=== PATIENT | male | born 1970 | race American Indian/Alaskan Native ===

== ENCOUNTER 2021-04-22 12:20 | Inpatient (IN) | payer MEDICAID ==
[2021-04-22] MEDS ORDERED: ZIPRASIDONE MESYLATE 20 MG VIAL IM ONE (20:00)
[2021-04-22 20:33] LABS: Basophils % (Auto) 0.5 % (0.0-1.8); Eosinophils # (Auto) 0.1 K/mm3 (0.0-0.4); Eosinophils % (Auto) 1.6 % (0.0-4.3); Hematocrit 38.3 % (35.5-45.6); Lymphocytes # (Auto) 1.8 K/mm3 (1.2-5.4); Lymphocytes % (Auto) 33.3 % (13.4-35.0); Mean Corpuscular HGB Conc 34 % (32-34); Mean Corpuscular Volume 91 fl (84-94); Monocytes # (Auto) 0.5 K/mm3 (0.0-0.8); Monocytes % (Auto) 9.8 % (0.0-7.3); Platelet Count 209 K/mm3 (140-440); Red Blood Count 4.19 M/mm3 (3.65-5.03); Red Cell Distribution Width 14.6 % (13.2-15.2)
[2021-04-22] MEDS ORDERED: WATER FOR INJ Sterile (PF) 10 ML ONE (20:38)
[2021-04-22 20:51] LABS: Alanine Aminotransferase 12 units/L (7-56); Albumin 4.3 g/dL (3.9-5); BUN/Creatinine Ratio 8; Blood Urea Nitrogen 7 mg/dL (9-20); Calcium 9.2 mg/dL (8.4-10.2); Chol/HDL Ratio 3.39 %; HDL Cholesterol 43 mg/dL (40-59); Hemolysis Index 6; LDL Cholesterol,Direct 92 mg/dL (50-130)
--- NOTE | 2021-04-23 09:23 | Progress Note ---
Subjective Date of service: 04/23/21 Principal diagnosis: Schizophrenia Subjective Comment: Per admission note: Patient became aggressive toward his sister. He is unstable on meds for schizophrenia and has been in and out of hospital up to 4 xs a week. The patient was seen today. He is walking down the maza. He is suspicious and paranoid. He is staring at me. He also appears to be responding to internal stimuli. His speech is garbled and he is difficult to understand and follow. 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 I informed the patient that this is a smoke free facility. He just stares at me then refuses to speak any more. PAST PSYCHIATRIC HISTORY Could not assess PAST MEDICAL HISTORY: None Family Psychiatric History: None reported or documented SOCIAL HISTORY Could not assess REVIEW OF SYSTEMS Could not assess MENTAL STATUS EXAMINATION General Appearance and Behavior: Age appropriate, fair hygiene, wearing ap propriate clothes, staring at times, uncooperative, suspicious Cooperation: Participating/engaged, guarded Psychomotor Behavior: Mood: Affect and affective range: congruent with mood Thought Process: disorganized Thought Content: hallucinations Speech: garbled Suicidal Ideation: Homicidal Ideation: Hallucinations: Auditory Delusions: paranoid, suspicious Impulse Control: impaired Insight and Judgment: Poor Memory: Poor Attention: Distracted Orientation: Alert, oriented Assessment (1) Schizophrenia Current Visit: Yes Status: Acute Treatment Plan Patient admitted for inpatient psychiatric evaluation, medication adjustment and close monitoring The patient's behavior, mood, sleep and appetite will be closely monitored. Patient enrolled in individual and group therapeutic sessions and encouraged to attend. Patient provided with a safe and structured environment. Patient's physical health needs will be addressed by the Hospitalist. Hospitalist Consulted Labs including CBC, CMP, Lipid profile and Hemoglobin A1C levels ordered for baseline reference Social Assessment will be completed and the Rug Measurer will work with patient and family to ensure a suitable and safe disposition Medication adjustment will be made as clinically indicated Risperidone 0.5mg po BID Trazodone 50mg po qhs Nicotine patch 21mg daiy Usual Wellness [facility]/Pres[facility]: - Start Trazodone 50 mg po QHS & 50 mg po QHS PRN between 10 PM & 2 AM for insomnia - Start Melatonin 5 mg po QHS to promote circadian rhythm The patient agreed on the treatment plan, understood the risk, benefit, alternative treatment, potential consequence of no treatment, and gave informed consent. Estimated days: 7 Post hospital care: primary care provider, psychiatric provider Case staffed with Dr. Nicholas Medications and Allergies Allergies Allergy/AdvReac Type Severity Reaction Status Date / Time No Known Allergies Allergy Verified 04/22/21 12:22 Results - Results Labs/Vitals: Laboratory Last Values WBC 5.4 K/mm3 (4.5-11.0) 04/22/21 20:12 RBC 4.19 M/mm3 (3.65-5.03) 04/22/21 20:12 Hgb 13.0 gm/dl (11.8-15.2) 04/22/21 20:12 Hct 38.3 % (35.5-45.6) 04/22/21 20:12 MCV 91 fl (84-94) 04/22/21 20:12 MCH 31 pg (28-32) 04/22/21 20:12 MCHC 34 % (32-34) 04/22/21 20:12 RDW 14.6 % (13.2-15.2) 04/22/21 20:12 Plt Count 209 K/mm3 (140-440) 04/22/21 20:12 Lymph % (Auto) 33.3 % (13.4-35.0) 04/22/21 20:12 [place] % (Auto) 9.8 % (0.0-7.3) H 04/22/21 20:12 Eos % (Auto) 1.6 % (0.0-4.3) 04/22/21 20:12 Baso % (Auto) 0.5 % (0.0-1.8) 04/22/21 20:12 Lymph # (Auto) 1.8 K/mm3 (1.2-5.4) 04/22/21 20:12 [place] # (Auto) 0.5 K/mm3 (0.0-0.8) 04/22/21 20:12 Eos # (Auto) 0.1 K/mm3 (0.0-0.4) 04/22/21 20:12 Baso # (Auto) 0.0 K/mm3 (0.0-0.1) 04/22/21 20:12 Seg Neutrophils % 54.8 % (40.0-70.0) 04/22/21 20:12 Seg Neutrophils # 3.0 K/mm3 (1.8-7.7) 04/22/21 20:12 Sodium 139 mmol/L (137-145) 04/22/21 20:12 Potassium 3.5 mmol/L (3.6-5.0) L 04/22/21 20:12 Chloride 103.4 mmol/L (98-107) 04/22/21 20:12 Carbon Dioxide 24 mmol/L (22-30) 04/22/21 20:12 Anion Gap 15 mmol/L 04/22/21 20:12 BUN 7 mg/dL (9-20) L 04/22/21 20:12 Creatinine 0.9 mg/dL (0.8-1.3) 04/22/21 20:12 Estimated GFR > 60 ml/min 04/22/21 20:12 BUN/Creatinine Ratio 8 % 04/22/21 20:12 Glucose 105 mg/dL (75-100) H 04/22/21 20:12 POC Glucose 121 mg/dL (70-105) H 04/22/21 18:19 Hemoglobin A1c 5.5 % (4-6) 04/22/21 20:12 Calcium 9.2 mg/dL (8.4-10.2) 04/22/21 20:12 Total Bilirubin 0.20 mg/dL (0.1-1.2) 04/22/21 20:12 AST 17 units/L (5-40) 04/22/21 20:12 ALT 12 units/L (7-56) 04/22/21 20:12 Alkaline Phosphatase 78 units/L (35-129) 04/22/21 20:12 Total Protein 7.6 g/dL (6.3-8.2) 04/22/21 20:12 Albumin 4.3 g/dL (3.9-5) 04/22/21 20:12 Albumin/Globulin Ratio 1.3 % 04/22/21 20:12 Triglycerides 66 mg/dL (2-149) 04/22/21 20:12 Cholesterol 146 mg/dL (50-199) 04/22/21 20:12 LDL Cholesterol Direct 92 mg/dL (50-130) 04/22/21 20:12 HDL Cholesterol 43 mg/dL (40-59) 04/22/21 20:12 Cholesterol/HDL Ratio 3.39 % 04/22/21 20:12 TSH 2.190 mlU/mL (0.270-4.200) 04/22/21 20:12 Last Vital Signs Temp 97.2 F L 04/22/21 18:44 Pulse 78 04/22/21 18:44 Resp 18 04/22/21 18:44 BP 116/79 04/22/21 18:44 Pulse Ox 100 04/22/21 18:44
[2021-04-23] MEDS ORDERED: NICOTINE 21 MG/24 HR PATCH TD SCH (12:00)
--- NOTE | 2021-04-23 12:28 | Consultation ---
History of Present Illness - Reason for Consult Consult date: 04/23/21 Medical management Requesting physician: GEOVANY DUVAL - History of Present Illness 50 YO Male with Nicotine Dependence, Schizophrenia admitted to [facility] for psychiatric stabilization. Consult placed by Dr. Duval for medical management. Patient seen and evaluated in the recreation room. No reported nursing events. Patient denies fever, chills, chest pain, palpitation, productive cough, skin rash, recent contact, or known exposure to COVID-19. Patient denies pain. Past History Past Medical History: other (See HPI) Past Surgical History: No surgical history, Other (Reviewed) Social history: single, smoking. denies: alcohol abuse Family history: hypertension Medications and Allergies Allergies Allergy/AdvReac Type Severity Reaction Status Date / Time No Known Allergies Allergy Verified 04/22/21 12:22 Active Meds: Active Medications Nicotine (Nicotine 21 Mg/24 Hr Patch) 21 mg TD QDAY [facility] Risperidone (Risperidone 0.25 Mg Tab) 0.5 mg PO BID [facility] Trazodone HCl (Trazodone 50 Mg Tab) 50 mg PO QHS DONTE Review of Systems Constitutional: no weight loss, no weight gain, no fever, no chills Ears, nose, mouth and throat: no ear pain, no decreased hearing, no nose pain, no sinus pressure Cardiovascular: no chest pain, no orthopnea Respiratory: no cough, no excessive sputum, no hemoptysis Gastrointestinal: no abdominal pain, no nausea, no diarrhea Genitourinary Male: no hematuria, no flank pain, no urinary frequency, no urinary hesitancy Rectal: no pain, no bleeding Musculoskeletal: no neck stiffness, no neck pain, no arm numbness/tingling, no shooting leg pain Integumentary: no rash, no pruritis, no wounds, no jaundice Neurological: no head injury, no paralysis, no numbness, no syncope Endocrine: no cold intolerance, no polyphagia, no polyuria, no nocturia, no excessive sweating Hematologic/Lymphatic: no easy bruising, no easy bleeding Exam - Constitutional Vitals: Temp Pulse Resp BP Pulse Ox 97.2 F L 78 18 116/79 100 04/22/21 18:44 04/22/21 18:44 04/22/21 18:44 04/22/21 18:44 04/22/21 18:44 General appearance: Present: no acute distress, well-nourished - EENT Eyes: Present: PERRL ENT: hearing intact, clear oral mucosa - Neck Neck: Present: supple, normal ROM - Respiratory Respiratory effort: normal Respiratory: bilateral: CTA - Cardiovascular Heart Sounds: Present: S1 & S2. Absent: rub, click - Extremities Extremities: pulses symmetrical, No edema Peripheral Pulses: within normal limits - Abdominal General gastrointestinal: Present: soft, non-tender, non-distended, normal bowel sounds Male genitourinary: Present: normal - Integumentary Integumentary: Present: clear, warm, dry - Musculoskeletal Musculoskeletal: gait normal, strength equal bilaterally - Psychiatric Psychiatric: appropriate mood/affect, intact judgment & insight - Neurologic Neurologic: CNII-XII intact, moves all extremities Results - Labs CBC & Chem 7: 04/22/21 20:12 04/22/21 20:12 Labs: Abnormal lab results 04/22/21 04/22/21 04/22/21 Range/Units 18:19 20:12 20:12 [place] % (Auto) 9.8 H (0.0-7.3) % Potassium 3.5 L (3.6-5.0) mmol/L BUN 7 L (9-20) mg/dL Glucose 105 H (75-100) mg/dL POC Glucose 121 H (70-105) mg/dL Assessment and Plan - Patient Problems (1) Nicotine dependence Current Visit: Yes Status: Acute Qualifiers: Nicotine product type: cigarettes Substance use status: in withdrawal Qualified Code(s): F17.213 - Nicotine dependence, cigarettes, with withdrawal Plan to address problem: Smoking cessation counseling, supportive care, behavior change counseling, +15 minutes. (2) Schizophrenia Current Visit: Yes Status: Acute Plan to address problem: Continue medical management as per primary team.
[2021-04-23] MEDS: risperiDONE 0.25 MG TAB PO SCH ×2 (13:48→21:27)
[2021-04-23] MEDS: traZODone 50 MG TAB PO SCH (21:27)
--- NOTE | 2021-04-24 08:28 | Progress Note ---
Subjective Date of service: 04/24/21 Principal diagnosis: Schizophrenia Subjective Comment: The patient was seen today. The patient is withdrawn and confused. He reports mood as " ok". SOCIAL HISTORY Could not assess REVIEW OF SYSTEMS Could not assess MENTAL STATUS EXAMINATION General Appearance and Behavior: Age appropriate, fair hygiene, wearing appropriate clothes, staring at times, uncooperative, suspicious Cooperation: Participating/engaged, guarded Psychomotor Behavior: Mood: "ok" Affect and affective range: incongruent with mood Thought Process: disorganized Thought Content: unable to assess Speech: hesitant Suicidal Ideation: Homicidal Ideation: Hallucinations: Unable to assess Delusions: paranoid, suspicious Impulse Control: impaired Insight and Judgment: Poor Memory: Poor Attention: Distracted Orientation: Alert, oriented Assessment (1) Schizophrenia Current Visit: Yes Status: Acute Treatment Plan Patient admitted for inpatient psychiatric evaluation, medication adjustment and close monitoring The patient's behavior, mood, sleep and appetite will be closely monitored. Patient enrolled in individual and group therapeutic sessions and encouraged to attend. Patient provided with a safe and structured environment. Patient's physical health needs will be addressed by the Hospitalist. Hospitalist Consulted Labs including CBC, CMP, Lipid profile and Hemoglobin A1C levels ordered for baseline reference Social Assessment will be completed and the Pull Over Machine Operator will work with patient and family to ensure a suitable and safe disposition Medication adjustment will be made as clinically indicated Continue Risperidone 0.5mg po BID Continue Trazodone 50mg po qhs Continue Nicotine patch 21mg daily Usual Wellness [facility]/Pres[facility]: - Start Trazodone 50 mg po QHS & 50 mg po QHS PRN between 10 PM & 2 AM for in somnia - Start Melatonin 5 mg po QHS to promote circadian rhythm The patient agreed on the treatment plan, understood the risk, benefit, alternative treatment, potential consequence of no treatment, and gave informed consent. Estimated days: 7 Post hospital care: primary care provider, psychiatric provider Case staffed with Dr. Nicholas Medications and Allergies Medications and Allergies Allergies Allergy/AdvReac Type Severity Reaction Status Date / Time No Known Allergies Allergy Verified 04/22/21 12:22 Home Medications Medication Instructions Recorded Confirmed Last Taken Type fluPHENAZine HCl [Fluphenazine HCl] 5 mg PO DAILY 04/24/21 04/24/21 Unknown History haloperidoL [Haldol] 5 mg PO Q8HR PRN 04/24/21 04/24/21 Unknown History Active Meds: Active Medications Nicotine (Nicotine 21 Mg/24 Hr Patch) 21 mg TD QDAY [facility] Last Admin: 04/23/21 13:48 Dose: Not Given Documented by: Nicotine (Nicotine 21 Mg/24 Hr Patch) 21 mg TD DAILY [facility] Risperidone (Risperidone 0.25 Mg Tab) 0.5 mg PO BID [facility] Last Admin: 04/23/21 21:27 Dose: 0.5 mg Documented by: Trazodone HCl (Trazodone 50 Mg Tab) 50 mg PO QHS [facility] Last Admin: 04/23/21 21:27 Dose: 50 mg Documented by: Results - Results Labs/Vitals: Laboratory Last Values WBC 5.4 K/mm3 (4.5-11.0) 04/22/21 20:12 RBC 4.19 M/mm3 (3.65-5.03) 04/22/21 20:12 Hgb 13.0 gm/dl (11.8-15.2) 04/22/21 20:12 Hct 38.3 % (35.5-45.6) 04/22/21 20:12 MCV 91 fl (84-94) 04/22/21 20:12 MCH 31 pg (28-32) 04/22/21 20:12 MCHC 34 % (32-34) 04/22/21 20:12 RDW 14.6 % (13.2-15.2) 04/22/21 20:12 Plt Count 209 K/mm3 (140-440) 04/22/21 20:12 Lymph % (Auto) 33.3 % (13.4-35.0) 04/22/21 20:12 [place] % (Auto) 9.8 % (0.0-7.3) H 04/22/21 20:12 Eos % (Auto) 1.6 % (0.0-4.3) 04/22/21 20:12 Baso % (Auto) 0.5 % (0.0-1.8) 04/22/21 20:12 Lymph # (Auto) 1.8 K/mm3 (1.2-5.4) 04/22/21 20:12 [place] # (Auto) 0.5 K/mm3 (0.0-0.8) 04/22/21 20:12 Eos # (Auto) 0.1 K/mm3 (0.0-0.4) 04/22/21 20:12 Baso # (Auto) 0.0 K/mm3 (0.0-0.1) 04/22/21 20:12 Seg Neutrophils % 54.8 % (40.0-70.0) 04/22/21 20:12 Seg Neutrophils # 3.0 K/mm3 (1.8-7.7) 04/22/21 20:12 Sodium 139 mmol/L (137-145) 04/22/21 20:12 Potassium 3.5 mmol/L (3.6-5.0) L 04/22/21 20:12 Chloride 103.4 mmol/L (98-107) 04/22/21 20:12 Carbon Dioxide 24 mmol/L (22-30) 04/22/21 20:12 Anion Gap 15 mmol/L 04/22/21 20:12 BUN 7 mg/dL (9-20) L 04/22/21 20:12 Creatinine 0.9 mg/dL (0.8-1.3) 04/22/21 20:12 Estimated GFR > 60 ml/min 04/22/21 20:12 BUN/Creatinine Ratio 8 % 04/22/21 20:12 Glucose 105 mg/dL (75-100) H 04/22/21 20:12 POC Glucose 121 mg/dL (70-105) H 04/22/21 18:19 Hemoglobin A1c 5.5 % (4-6) 04/22/21 20:12 Calcium 9.2 mg/dL (8.4-10.2) 04/22/21 20:12 Total Bilirubin 0.20 mg/dL (0.1-1.2) 04/22/21 20:12 AST 17 units/L (5-40) 04/22/21 20:12 ALT 12 units/L (7-56) 04/22/21 20:12 Alkaline Phosphatase 78 units/L (35-129) 04/22/21 20:12 Total Protein 7.6 g/dL (6.3-8.2) 04/22/21 20:12 Albumin 4.3 g/dL (3.9-5) 04/22/21 20:12 Albumin/Globulin Ratio 1.3 % 04/22/21 20:12 Triglycerides 66 mg/dL (2-149) 04/22/21 20:12 Cholesterol 146 mg/dL (50-199) 04/22/21 20:12 LDL Cholesterol Direct 92 mg/dL (50-130) 04/22/21 20:12 HDL Cholesterol 43 mg/dL (40-59) 04/22/21 20:12 Cholesterol/HDL Ratio 3.39 % 04/22/21 20:12 TSH 2.190 mlU/mL (0.270-4.200) 04/22/21 20:12 Last Vital Signs Temp 97.2 F L 04/22/21 18:44 Pulse 78 04/22/21 18:44 Resp 18 04/22/21 18:44 BP 116/79 04/22/21 18:44 Pulse Ox 100 04/22/21 18:44
[2021-04-24] MEDS: risperiDONE 0.25 MG TAB PO SCH ×2 (09:42→21:46)
[2021-04-24] MEDS: NICOTINE 21 MG/24 HR PATCH TD SCH (09:42)
[2021-04-24] MEDS: traZODone 50 MG TAB PO SCH ×2 (21:46→22:41)
--- NOTE | 2021-04-25 09:00 | Progress Note ---
Subjective Date of service: 04/25/21 Principal diagnosis: Schizophrenia Subjective Comment: 04/24/2021: The patient was seen today. The patient is withdrawn and confused. He reports mood as " ok". 04/25/2021: The patient was seen eating breakfast. He continues to be confused with flat affect. SOCIAL HISTORY Could not assess REVIEW OF SYSTEMS Could not assess MENTAL STATUS EXAMINATION General Appearance and Behavior: Age appropriate, fair hygiene, wearing appropriate clothes, staring at times, uncooperative, suspicious Cooperation: Participating/engaged, guarded Psychomotor Behavior: Mood: "ok" Affect and affective range: incongruent with mood Thought Process: disorganized Thought Content: unable to assess Speech: hesitant Suicidal Ideation: Homicidal Ideation: Hallucinations: Unable to assess Delusions: paranoid, suspicious Impulse Control: impaired Insight and Judgment: Poor Memory: Poor Attention: Distracted Orientation: Alert, oriented Assessment (1) Schizophrenia Current Visit: Yes Status: Acute Treatment Plan Patient admitted for inpatient psychiatric evaluation, medication adjustment and close monitoring The patient's behavior, mood, sleep and appetite will be closely monitored. Patient enrolled in individual and group therapeutic sessions and encouraged to attend. Patient provided with a safe and structured environment. Patient's physical health needs will be addressed by the Hospitalist. Hospitalist Consulted Labs including CBC, CMP, Lipid profile and Hemoglobin A1C levels ordered for baseline reference Social Assessment will be completed and the Stage Settings Painter will work with patient and family to ensure a suitable and safe disposition Medication adjustment will be made as clinically indicated Continue Risperidone 0.5mg po BID Continue Trazodone 50mg po qhs Continue Nicotine patch 21mg daily Usual Wellness [facility]/Preservation: - Start Trazodone 50 mg po QHS & 50 mg po QHS PRN between 10 PM & 2 AM for insomnia - Start Melatonin 5 mg po QHS to promote circadian rhythm The patient agreed on the treatment plan, understood the risk, benefit, alternative treatment, potential consequence of no treatment, and gave informed consent. Estimated days: 7 Post hospital care: primary care provider, psychiatric provider Case staffed with Dr. Nicholas Medications and Allergies Medications and Allergies Allergies Allergy/AdvReac Type Severity Reaction Status Date / Time No Known Allergies Allergy Verified 04/22/21 12:22 Home Medications Medication Instructions Recorded Confirmed Last Taken Type fluPHENAZine HCl [Fluphenazine HCl] 5 mg PO DAILY 04/24/21 04/24/21 Unknown History haloperidoL [Haldol] 5 mg PO Q8HR PRN 04/24/21 04/24/21 Unknown History Active Meds: Active Medications Nicotine (Nicotine 21 Mg/24 Hr Patch) 21 mg TD DAILY [facility] Last Admin: 04/24/21 09:42 Dose: 21 mg Documented by: Risperidone (Risperidone 0.25 Mg Tab) 0.5 mg PO BID [facility] Last Admin: 04/24/21 21:46 Dose: 0.5 mg Documented by: Trazodone HCl (Trazodone 50 Mg Tab) 50 mg PO QHS [facility] Last Admin: 04/24/21 22:41 Dose: Not Given Documented by: Results - Results Labs/Vitals: Laboratory Last Values WBC 5.4 K/mm3 (4.5-11.0) 04/22/21 20:12 RBC 4.19 M/mm3 (3.65-5.03) 04/22/21 20:12 Hgb 13.0 gm/dl (11.8-15.2) 04/22/21 20:12 Hct 38.3 % (35.5-45.6) 04/22/21 20:12 MCV 91 fl (84-94) 04/22/21 20:12 MCH 31 pg (28-32) 04/22/21 20:12 MCHC 34 % (32-34) 04/22/21 20:12 RDW 14.6 % (13.2-15.2) 04/22/21 20:12 Plt Count 209 K/mm3 (140-440) 04/22/21 20:12 Lymph % (Auto) 33.3 % (13.4-35.0) 04/22/21 20:12 [place] % (Auto) 9.8 % (0.0-7.3) H 04/22/21 20:12 Eos % (Auto) 1.6 % (0.0-4.3) 04/22/21 20:12 Baso % (Auto) 0.5 % (0.0-1.8) 04/22/21 20:12 Lymph # (Auto) 1.8 K/mm3 (1.2-5.4) 04/22/21 20:12 [place] # (Auto) 0.5 K/mm3 (0.0-0.8) 04/22/21 20:12 Eos # (Auto) 0.1 K/mm3 (0.0-0.4) 04/22/21 20:12 Baso # (Auto) 0.0 K/mm3 (0.0-0.1) 04/22/21 20:12 Seg Neutrophils % 54.8 % (40.0-70.0) 04/22/21 20:12 Seg Neutrophils # 3.0 K/mm3 (1.8-7.7) 04/22/21 20:12 Sodium 139 mmol/L (137-145) 04/22/21 20:12 Potassium 3.5 mmol/L (3.6-5.0) L 04/22/21 20:12 Chloride 103.4 mmol/L (98-107) 04/22/21 20:12 Carbon Dioxide 24 mmol/L (22-30) 04/22/21 20:12 Anion Gap 15 mmol/L 04/22/21 20:12 BUN 7 mg/dL (9-20) L 04/22/21 20:12 Creatinine 0.9 mg/dL (0.8-1.3) 04/22/21 20:12 Estimated GFR > 60 ml/min 04/22/21 20:12 BUN/Creatinine Ratio 8 % 04/22/21 20:12 Glucose 105 mg/dL (75-100) H 04/22/21 20:12 POC Glucose 121 mg/dL (70-105) H 04/22/21 18:19 Hemoglobin A1c 5.5 % (4-6) 04/22/21 20:12 Calcium 9.2 mg/dL (8.4-10.2) 04/22/21 20:12 Total Bilirubin 0.20 mg/dL (0.1-1.2) 04/22/21 20:12 AST 17 units/L (5-40) 04/22/21 20:12 ALT 12 units/L (7-56) 04/22/21 20:12 Alkaline Phosphatase 78 units/L (35-129) 04/22/21 20:12 Total Protein 7.6 g/dL (6.3-8.2) 04/22/21 20:12 Albumin 4.3 g/dL (3.9-5) 04/22/21 20:12 Albumin/Globulin Ratio 1.3 % 04/22/21 20:12 Triglycerides 66 mg/dL (2-149) 04/22/21 20:12 Cholesterol 146 mg/dL (50-199) 04/22/21 20:12 LDL Cholesterol Direct 92 mg/dL (50-130) 04/22/21 20:12 HDL Cholesterol 43 mg/dL (40-59) 04/22/21 20:12 Cholesterol/HDL Ratio 3.39 % 04/22/21 20:12 TSH 2.190 mlU/mL (0.270-4.200) 04/22/21 20:12 Last Vital Signs Temp 98.7 F 04/24/21 06:41 Pulse 67 04/24/21 06:41 Resp 18 04/24/21 06:41 BP 92/61 04/24/21 06:41 Pulse Ox 98 04/24/21 06:41
[2021-04-25] MEDS: NICOTINE 21 MG/24 HR PATCH TD SCH (10:23)
[2021-04-25] MEDS: risperiDONE 0.25 MG TAB PO SCH ×2 (10:23→21:41)
[2021-04-25] MEDS ORDERED: LORazepam 2 MG/ML VIAL IM ONE (16:00)
[2021-04-25] MEDS: traZODone 50 MG TAB PO SCH ×2 (21:41→22:01)
--- NOTE | 2021-04-26 07:55 | Progress Note ---
Subjective Date of service: 04/26/21 Principal diagnosis: Schizophrenia Subjective Comment: 04/24/2021: The patient was seen today. The patient is withdrawn and confused. He reports mood as " ok". 04/25/2021: The patient was seen eating breakfast. He continues to be confused with flat affect. 04/25/20: The patient was seen eating breakfast. He continues to present with flat affect. He states mood as fine. SOCIAL HISTORY Could not assess REVIEW OF SYSTEMS Could not assess MENTAL STATUS EXAMINATION General Appearance and Behavior: Age appropriate, fair hygiene, wearing appropriate clothes, staring at times, uncooperative, suspicious Cooperation: Participating/engaged, guarded Psychomotor Behavior: Mood: "fine" Affect and affective range: incongruent with mood Thought Process: disorganized Thought Content: unable to assess Speech: hesitant Suicidal Ideation: Homicidal Ideation: Hallucinations: Unable to assess Delusions: paranoid, suspicious Impulse Control: impaired Insight and Judgment: Poor Memory: Poor Attention: Distracted Orientation: Alert, oriented Assessment (1) Schizophrenia Current Visit: Yes Status: Acute Treatment Plan Patient admitted for inpatient psychiatric evaluation, medication adjustment and close monitoring The patient's behavior, mood, sleep and appetite will be closely monitored. Patient enrolled in individual and group therapeutic sessions and encouraged to attend. Patient provided with a safe and structured environment. Patient's physical health needs will be addressed by the Hospitalist. Hospitalist Consulted Labs including CBC, CMP, Lipid profile and Hemoglobin A1C levels ordered for baseline reference Social Assessment will be completed and the Network Security Architect will work with patient and family to ensure a suitable and safe disposition Medication adjustment will be made as clinically indicated Start Risperidone 1mg po BID Start Depakote 250mg po BID Continue Trazodone 50mg po qhs Continue Nicotine patch 21mg daily Usual Wellness Religion/Preservation: - Start Trazodone 50 mg po QHS & 50 mg po QHS PRN between 10 PM & 2 AM for insomnia - Start Melatonin 5 mg po QHS to promote circadian rhythm The patient agreed on the treatment plan, understood the risk, benefit, alternative treatment, potential consequence of no treatment, and gave informed consent. Estimated days: 7 Post hospital care: primary care provider, psychiatric provider Case staffed with Dr. Nicholas Medications and Allergies Medications and Allergies Allergies Allergy/AdvReac Type Severity Reaction Status Date / Time No Known Allergies Allergy Verified 04/22/21 12:22 Home Medications Medication Instructions Recorded Confirmed Last Taken Type fluPHENAZine HCl [Fluphenazine HCl] 5 mg PO DAILY 04/24/21 04/24/21 Unknown History haloperidoL [Haldol] 5 mg PO Q8HR PRN 04/24/21 04/24/21 Unknown History Active Meds: Active Medications Nicotine (Nicotine 21 Mg/24 Hr Patch) 21 mg TD DAILY [facility] Last Admin: 04/25/21 10:23 Dose: 21 mg Documented by: Risperidone (Risperidone 0.25 Mg Tab) 0.5 mg PO BID [facility] Last Admin: 04/25/21 21:41 Dose: 0.5 mg Documented by: Trazodone HCl (Trazodone 50 Mg Tab) 50 mg PO QHS [facility] Last Admin: 04/25/21 22:01 Dose: Not Given Documented by: Results - Results Labs/Vitals: Laboratory Last Values WBC 5.4 K/mm3 (4.5-11.0) 04/22/21 20:12 RBC 4.19 M/mm3 (3.65-5.03) 04/22/21 20:12 Hgb 13.0 gm/dl (11.8-15.2) 04/22/21 20:12 Hct 38.3 % (35.5-45.6) 04/22/21 20:12 MCV 91 fl (84-94) 04/22/21 20:12 MCH 31 pg (28-32) 04/22/21 20:12 MCHC 34 % (32-34) 04/22/21 20:12 RDW 14.6 % (13.2-15.2) 04/22/21 20:12 Plt Count 209 K/mm3 (140-440) 04/22/21 20:12 Lymph % (Auto) 33.3 % (13.4-35.0) 04/22/21 20:12 [place] % (Auto) 9.8 % (0.0-7.3) H 04/22/21 20:12 Eos % (Auto) 1.6 % (0.0-4.3) 04/22/21 20:12 Baso % (Auto) 0.5 % (0.0-1.8) 04/22/21 20:12 Lymph # (Auto) 1.8 K/mm3 (1.2-5.4) 04/22/21 20:12 [place] # (Auto) 0.5 K/mm3 (0.0-0.8) 04/22/21 20:12 Eos # (Auto) 0.1 K/mm3 (0.0-0.4) 04/22/21 20:12 Baso # (Auto) 0.0 K/mm3 (0.0-0.1) 04/22/21 20:12 Seg Neutrophils % 54.8 % (40.0-70.0) 04/22/21 20:12 Seg Neutrophils # 3.0 K/mm3 (1.8-7.7) 04/22/21 20:12 Sodium 139 mmol/L (137-145) 04/22/21 20:12 Potassium 3.5 mmol/L (3.6-5.0) L 04/22/21 20:12 Chloride 103.4 mmol/L (98-107) 04/22/21 20:12 Carbon Dioxide 24 mmol/L (22-30) 04/22/21 20:12 Anion Gap 15 mmol/L 04/22/21 20:12 BUN 7 mg/dL (9-20) L 04/22/21 20:12 Creatinine 0.9 mg/dL (0.8-1.3) 04/22/21 20:12 Estimated GFR > 60 ml/min 04/22/21 20:12 BUN/Creatinine Ratio 8 % 04/22/21 20:12 Glucose 105 mg/dL (75-100) H 04/22/21 20:12 POC Glucose 121 mg/dL (70-105) H 04/22/21 18:19 Hemoglobin A1c 5.5 % (4-6) 04/22/21 20:12 Calcium 9.2 mg/dL (8.4-10.2) 04/22/21 20:12 Total Bilirubin 0.20 mg/dL (0.1-1.2) 04/22/21 20:12 AST 17 units/L (5-40) 04/22/21 20:12 ALT 12 units/L (7-56) 04/22/21 20:12 Alkaline Phosphatase 78 units/L (35-129) 04/22/21 20:12 Total Protein 7.6 g/dL (6.3-8.2) 04/22/21 20:12 Albumin 4.3 g/dL (3.9-5) 04/22/21 20:12 Albumin/Globulin Ratio 1.3 % 04/22/21 20:12 Triglycerides 66 mg/dL (2-149) 04/22/21 20:12 Cholesterol 146 mg/dL (50-199) 04/22/21 20:12 LDL Cholesterol Direct 92 mg/dL (50-130) 04/22/21 20:12 HDL Cholesterol 43 mg/dL (40-59) 04/22/21 20:12 Cholesterol/HDL Ratio 3.39 % 04/22/21 20:12 TSH 2.190 mlU/mL (0.270-4.200) 04/22/21 20:12 Last Vital Signs Temp 98.0 F 04/25/21 19:29 Pulse 63 04/25/21 19:32 Resp 20 04/25/21 19:29 BP 136/47 04/25/21 19:32 Pulse Ox 96 04/25/21 19:32
[2021-04-26] MEDS ORDERED: LORazepam 2 MG/ML VIAL IM SCH (08:00)
[2021-04-26] MEDS: DIVALPROEX DR 250 MG TAB PO SCH ×2 (10:39→22:13)
[2021-04-26] MEDS: NICOTINE 21 MG/24 HR PATCH TD SCH (10:39)
[2021-04-26] MEDS: risperiDONE 1 MG TAB PO SCH ×2 (10:45→22:13)
--- NOTE | 2021-04-26 12:29 | Progress Note ---
Assessment and Plan - Patient Problems (1) Nicotine dependence Current Visit: Yes Status: Acute Qualifiers: Nicotine product type: cigarettes Substance use status: in withdrawal Qualified Code(s): F17.213 - Nicotine dependence, cigarettes, with withdrawal Plan to address problem: Smoking cessation counseling, supportive care, behavior change counseling, +15 minutes. (2) Schizophrenia Current Visit: Yes Status: Acute Plan to address problem: Continue medical management as per primary team. History Interval history: 50 YO Male with Nicotine Dependence, Schizophrenia admitted to [facility] for psychiatric stabilization. Patient seen and evaluated in the recreation room. No reported nursing events. Patient denies pain. Hospitalist Physical - Constitutional Vitals: Temp Pulse Resp BP Pulse Ox 98.8 F 106 H 16 111/80 100 04/26/21 08:25 04/26/21 08:25 04/26/21 08:25 04/26/21 08:25 04/26/21 08:25 General appearance: Present: no acute distress, well-nourished - EENT Eyes: Present: PERRL, EOM intact ENT: hearing intact - Neck Neck: Present: supple - Respiratory Respiratory effort: normal Respiratory: bilateral: CTA - Cardiovascular Rhythm: regular Heart Sounds: Present: S1 & S2 - Extremities Extremities: no ischemia Peripheral Pulses: within normal limits - Abdominal General gastrointestinal: soft, non-tender, non-distended - Integumentary Integumentary: Present: clear, dry - Psychiatric Psychiatric: cooperative - Neurologic Neurologic: CNII-XII intact Results - Labs CBC & Chem 7: 04/22/21 20:12 04/22/21 20:12 Labs: Laboratory Last Values WBC 5.4 K/mm3 (4.5-11.0) 04/22/21 20:12 RBC 4.19 M/mm3 (3.65-5.03) 04/22/21 20:12 Hgb 13.0 gm/dl (11.8-15.2) 04/22/21 20:12 Hct 38.3 % (35.5-45.6) 04/22/21 20:12 MCV 91 fl (84-94) 04/22/21 20:12 MCH 31 pg (28-32) 04/22/21 20:12 MCHC 34 % (32-34) 04/22/21 20:12 RDW 14.6 % (13.2-15.2) 04/22/21 20:12 Plt Count 209 K/mm3 (140-440) 04/22/21 20:12 Lymph % (Auto) 33.3 % (13.4-35.0) 04/22/21 20:12 [place] % (Auto) 9.8 % (0.0-7.3) H 04/22/21 20:12 Eos % (Auto) 1.6 % (0.0-4.3) 04/22/21 20:12 Baso % (Auto) 0.5 % (0.0-1.8) 04/22/21 20:12 Lymph # (Auto) 1.8 K/mm3 (1.2-5.4) 04/22/21 20:12 [place] # (Auto) 0.5 K/mm3 (0.0-0.8) 04/22/21 20:12 Eos # (Auto) 0.1 K/mm3 (0.0-0.4) 04/22/21 20:12 Baso # (Auto) 0.0 K/mm3 (0.0-0.1) 04/22/21 20:12 Seg Neutrophils % 54.8 % (40.0-70.0) 04/22/21 20:12 Seg Neutrophils # 3.0 K/mm3 (1.8-7.7) 04/22/21 20:12 Sodium 139 mmol/L (137-145) 04/22/21 20:12 Potassium 3.5 mmol/L (3.6-5.0) L 04/22/21 20:12 Chloride 103.4 mmol/L (98-107) 04/22/21 20:12 Carbon Dioxide 24 mmol/L (22-30) 04/22/21 20:12 Anion Gap 15 mmol/L 04/22/21 20:12 BUN 7 mg/dL (9-20) L 04/22/21 20:12 Creatinine 0.9 mg/dL (0.8-1.3) 04/22/21 20:12 Estimated GFR > 60 ml/min 04/22/21 20:12 BUN/Creatinine Ratio 8 % 04/22/21 20:12 Glucose 105 mg/dL (75-100) H 04/22/21 20:12 POC Glucose 121 mg/dL (70-105) H 04/22/21 18:19 Hemoglobin A1c 5.5 % (4-6) 04/22/21 20:12 Calcium 9.2 mg/dL (8.4-10.2) 04/22/21 20:12 Total Bilirubin 0.20 mg/dL (0.1-1.2) 04/22/21 20:12 AST 17 units/L (5-40) 04/22/21 20:12 ALT 12 units/L (7-56) 04/22/21 20:12 Alkaline Phosphatase 78 units/L (35-129) 04/22/21 20:12 Total Protein 7.6 g/dL (6.3-8.2) 04/22/21 20:12 Albumin 4.3 g/dL (3.9-5) 04/22/21 20:12 Albumin/Globulin Ratio 1.3 % 04/22/21 20:12 Triglycerides 66 mg/dL (2-149) 04/22/21 20:12 Cholesterol 146 mg/dL (50-199) 04/22/21 20:12 LDL Cholesterol Direct 92 mg/dL (50-130) 04/22/21 20:12 HDL Cholesterol 43 mg/dL (40-59) 04/22/21 20:12 Cholesterol/HDL Ratio 3.39 % 04/22/21 20:12 TSH 2.190 mlU/mL (0.270-4.200) 04/22/21 20:12 Brooks/IV: Voiding Method Toilet Active Medications - Current Medications Current Medications: Generic Name Dose Route Start Last Admin Trade Name Freq PRN Reason Stop Dose Admin Divalproex Sodium 250 mg 04/26/21 10:00 04/26/21 10:[address] 250 Mg Tab PO 250 mg BID DONTE Administration Lorazepam 1 mg 04/26/21 08:00 Lorazepam 2 Mg/Ml Vial IM PRN DONTE Nicotine 21 mg 04/24/21 10:00 04/26/21 10:39 Nicotine 21 Mg/24 Hr Patch TD 21 mg DAILY DONTE Administration Risperidone 1 mg 04/26/21 10:00 04/26/21 10:45 Risperidone 1 Mg Tab PO Not Given BID DONTE Trazodone HCl 50 mg 04/23/21 22:00 04/25/21 22:01 Trazodone 50 Mg Tab PO Not Given QHS DONTE
[2021-04-26] MEDS: traZODone 50 MG TAB PO SCH (22:13)
--- NOTE | 2021-04-27 08:15 | Discharge Summary ---
Providers - Providers Date of Admission: 04/22/21 17:32 Date of discharge: 04/27/21 Attending physician: GEOVANY DUVAL MD 04/22/21 13:43 Consult to Physician [CONS] Routine Comment: Consulting Provider: ANGELINA CLIFTON Physician Instructions: Reason For Exam: manage medical conditions Primary care physician: [facility] FOR[facility] SPECIALIST Hospitalization Reason for admission: agitation Admitting Diagnosis: F20.9 - SCHIZOPHRENIA, UNSPECIFIED Condition: Stable Hospital course: The patient was provided inpatient psychiatric treatment with safe and supportive environment, group/individual therapy, psychiatric medication, medication adjustment, adverse effect monitor, medical evaluation, medical treatment, social service assessment, social support meeting, placement assessment and psycho-education. The patients mood, cognition, behavior, motivation, compliance to treatment and appreciation on family/social support are improved and stabilized. At the time of discharge, the patient had no suicidal ideas, no homicidal ideas, no aggressive thoughts, no endangering behavior and no debilitating adverse effects. The patient agreed on the treatment plan, understood the risk, benefit, alternative treatment, potential consequence of no treatment, and gave informed consent. Disposition: 01 HOME / SELF CARE / HOMELESS Allergies/Adverse Reactions: Allergies No Known Allergies Allergy (Verified 04/22/21 12:22) Vital Signs: Last Vital Signs Temp 99.1 F 04/26/21 22:00 Pulse 92 H 04/26/21 22:00 Resp 16 04/26/21 22:00 BP 124/83 04/26/21 22:00 Pulse Ox 100 04/26/21 22:00 Last Lab: Laboratory Last Values WBC 5.4 K/mm3 (4.5-11.0) 04/22/21 20:12 RBC 4.19 M/mm3 (3.65-5.03) 04/22/21 20:12 Hgb 13.0 gm/dl (11.8-15.2) 04/22/21 20:12 Hct 38.3 % (35.5-45.6) 04/22/21 20:12 MCV 91 fl (84-94) 04/22/21 20:12 MCH 31 pg (28-32) 04/22/21 20:12 MCHC 34 % (32-34) 04/22/21 20:12 RDW 14.6 % (13.2-15.2) 04/22/21 20:12 Plt Count 209 K/mm3 (140-440) 04/22/21 20:12 Lymph % (Auto) 33.3 % (13.4-35.0) 04/22/21 20:12 [place] % (Auto) 9.8 % (0.0-7.3) H 04/22/21 20:12 Eos % (Auto) 1.6 % (0.0-4.3) 04/22/21 20:12 Baso % (Auto) 0.5 % (0.0-1.8) 04/22/21 20:12 Lymph # (Auto) 1.8 K/mm3 (1.2-5.4) 04/22/21 20:12 [place] # (Auto) 0.5 K/mm3 (0.0-0.8) 04/22/21 20:12 Eos # (Auto) 0.1 K/mm3 (0.0-0.4) 04/22/21 20:12 Baso # (Auto) 0.0 K/mm3 (0.0-0.1) 04/22/21 20:12 Seg Neutrophils % 54.8 % (40.0-70.0) 04/22/21 20:12 Seg Neutrophils # 3.0 K/mm3 (1.8-7.7) 04/22/21 20:12 Sodium 139 mmol/L (137-145) 04/22/21 20:12 Potassium 3.5 mmol/L (3.6-5.0) L 04/22/21 20:12 Chloride 103.4 mmol/L (98-107) 04/22/21 20:12 Carbon Dioxide 24 mmol/L (22-30) 04/22/21 20:12 Anion Gap 15 mmol/L 04/22/21 20:12 BUN 7 mg/dL (9-20) L 04/22/21 20:12 Creatinine 0.9 mg/dL (0.8-1.3) 04/22/21 20:12 Estimated GFR > 60 ml/min 04/22/21 20:12 BUN/Creatinine Ratio 8 % 04/22/21 20:12 Glucose 105 mg/dL (75-100) H 04/22/21 20:12 POC Glucose 121 mg/dL (70-105) H 04/22/21 18:19 Hemoglobin A1c 5.5 % (4-6) 04/22/21 20:12 Calcium 9.2 mg/dL (8.4-10.2) 04/22/21 20:12 Total Bilirubin 0.20 mg/dL (0.1-1.2) 04/22/21 20:12 AST 17 units/L (5-40) 04/22/21 20:12 ALT 12 units/L (7-56) 04/22/21 20:12 Alkaline Phosphatase 78 units/L (35-129) 04/22/21 20:12 Total Protein 7.6 g/dL (6.3-8.2) 04/22/21 20:12 Albumin 4.3 g/dL (3.9-5) 04/22/21 20:12 Albumin/Globulin Ratio 1.3 % 04/22/21 20:12 Triglycerides 66 mg/dL (2-149) 04/22/21 20:12 Cholesterol 146 mg/dL (50-199) 04/22/21 20:12 LDL Cholesterol Direct 92 mg/dL (50-130) 04/22/21 20:12 HDL Cholesterol 43 mg/dL (40-59) 04/22/21 20:12 Cholesterol/HDL Ratio 3.39 % 04/22/21 20:12 TSH 2.190 mlU/mL (0.270-4.200) 04/22/21 20:12 Core Measure Documentation - Palliative Care Palliative Care/ Comfort Measures: Not Applicable - Core Measures Any of the following diagnoses?: none Exam - Constitutional Vitals: Temp Pulse Resp BP Pulse Ox 99.1 F 92 H 16 124/83 100 04/26/21 22:00 04/26/21 22:00 04/26/21 22:00 04/26/21 22:00 04/26/21 22:00 Plan Activity: advance as tolerated Weight Bearing Status: Weight Bear as Tolerated Diet: regular Care Plan Goals: Maintain good and stable mental health. Plan of Treatment: The patient should be compliant with medications, not to use drugs and not to drink alcohol. The SN[facility] understands that if suicidal ideas, homicidal ideas, or any endangering thoughts/behavior arise, they should immediately seek for emergent assistance including but not limited to crisis hot line and emergency room. Follow up with outpatient Psychiatrist and PCP within 7 - 14 days of discharge. Follow up with: PRIMARY CARE, [Primary Care Provider] - 7 Days Prescriptions: traZODone [Desyrel] 50 mg PO QHS 30 Days #30 tablet Divalproex [Sebastián See] 250 mg PO BID 30 Days #60 tablet risperiDONE [RisperDAL] 1 mg PO BID 30 Days #60 tablet
[2021-04-27] MEDS: NICOTINE 21 MG/24 HR PATCH TD SCH (09:13)
[2021-04-27] MEDS: DIVALPROEX DR 250 MG TAB PO SCH ×2 (09:13→21:20)
[2021-04-27] MEDS: risperiDONE 1 MG TAB PO SCH ×2 (09:16→21:21)
[2021-04-27] MEDS: traZODone 50 MG TAB PO SCH (21:20)
--- NOTE | 2021-04-28 07:21 | Progress Note ---
Subjective Date of service: 04/28/21 Principal diagnosis: Schizophrenia Subjective Comment: 04/24/2021: The patient was seen today. The patient is withdrawn and confused. He reports mood as " ok". 04/25/2021: The patient was seen eating breakfast. He continues to be confused with flat affect. 04/26/20: The patient was seen eating breakfast. He continues to present with flat affect. He states mood as fine. 04/27/2021: The patient is seen today, he is conversational. He states mood as " I'm alright, I just took a shower this morning, I want to hear music today." He denies suicidal/homicidal ideation and denies hallucinations. SOCIAL HISTORY Could not assess REVIEW OF SYSTEMS Could not assess MENTAL STATUS EXAMINATION General Appearance and Behavior: Age appropriate, fair hygiene, wearing appropriate clothes, staring at times, uncooperative, suspicious Cooperation: Participating/engaged, guarded Psychomotor Behavior: Mood: "alright" Affect and affective range: incongruent with mood Thought Process: circumstantial Thought Content: not suicidal Speech: hesitant Suicidal Ideation: denies Homicidal Ideation: denies Hallucinations: denies Delusions: None Impulse Control: impaired Insight and Judgment:Limited insight and Poor judgment Memory: Poor Attention: Distracted Orientation: Alert, oriented Assessment (1) Schizophrenia Current Visit: Yes Status: Acute Treatment Plan Patient admitted for inpatient psychiatric evaluation, medication adjustment and close monitoring The patient's behavior, mood, sleep and appetite will be closely monitored. Patient enrolled in individual and group therapeutic sessions and encouraged to attend. Patient provided with a safe and structured environment. Patient's physical health needs will be addressed by the Hospitalist. Hospitalist Consulted Labs including CBC, CMP, Lipid profile and Hemoglobin A1C levels ordered for baseline reference Social Assessment will be completed and the Sports Announcer will work with patient and family to ensure a suitable and safe disposition Medication adjustment will be made as clinically indicated Continue Risperidone 1mg po BID Continue Depakote 250mg po BID Continue Trazodone 50mg po qhs Continue Nicotine patch 21mg daily Usual Wellness Jew/Preservation: - Start Trazodone 50 mg po QHS & 50 mg po QHS PRN between 10 PM & 2 AM for i nsomnia - Start Melatonin 5 mg po QHS to promote circadian rhythm The patient agreed on the treatment plan, understood the risk, benefit, alternative treatment, potential consequence of no treatment, and gave informed consent. Estimated days: 0 Post hospital care: primary care provider, psychiatric provider Case staffed with Dr. Nicholas Medications and Allergies Medications and Allergies Allergies Allergy/AdvReac Type Severity Reaction Status Date / Time No Known Allergies Allergy Verified 04/22/21 12:22 Home Medications Medication Instructions Recorded Confirmed Last Taken Type fluPHENAZine HCl [Fluphenazine HCl] 5 mg PO DAILY 04/24/21 04/24/21 Unknown History haloperidoL [Haldol] 5 mg PO Q8HR PRN 04/24/21 04/24/[address] [Depakote Dr] 250 mg PO BID 30 Days #60 tablet 04/27/21 Unknown Rx risperiDONE [RisperDAL] 1 mg PO BID 30 Days #60 tablet 04/27/21 Unknown Rx traZODone [Desyrel] 50 mg PO QHS 30 Days #30 tablet 04/27/21 Unknown Rx Active Meds: Active Medications Divalproex Sodium (Divalproex Dr 250 Mg Tab) 250 mg PO BID [facility] Last Admin: 04/27/21 21:20 Dose: 250 mg Documented by: Lorazepam (Lorazepam 2 Mg/Ml Vial) 1 mg IM PRN [facility] Nicotine (Nicotine 21 Mg/24 Hr Patch) 21 mg TD DAILY [facility] Last Admin: 04/27/21 09:13 Dose: 21 mg Documented by: Risperidone (Risperidone 1 Mg Tab) 1 mg PO BID [facility] Last Admin: 04/27/21 21:21 Dose: 1 mg Documented by: Trazodone HCl (Trazodone 50 Mg Tab) 50 mg PO QHS [facility] Last Admin: 04/27/21 21:20 Dose: 50 mg Documented by: Results - Results Labs/Vitals: Laboratory Last Values WBC 5.4 K/mm3 (4.5-11.0) 04/22/21 20:12 RBC 4.19 M/mm3 (3.65-5.03) 04/22/21 20:12 Hgb 13.0 gm/dl (11.8-15.2) 04/22/21 20:12 Hct 38.3 % (35.5-45.6) 04/22/21 20:12 MCV 91 fl (84-94) 04/22/21 20:12 MCH 31 pg (28-32) 04/22/21 20:12 MCHC 34 % (32-34) 04/22/21 20:12 RDW 14.6 % (13.2-15.2) 04/22/21 20:12 Plt Count 209 K/mm3 (140-440) 04/22/21 20:12 Lymph % (Auto) 33.3 % (13.4-35.0) 04/22/21 20:12 [place] % (Auto) 9.8 % (0.0-7.3) H 04/22/21 20:12 Eos % (Auto) 1.6 % (0.0-4.3) 04/22/21 20:12 Baso % (Auto) 0.5 % (0.0-1.8) 04/22/21 20:12 Lymph # (Auto) 1.8 K/mm3 (1.2-5.4) 04/22/21 20:12 [place] # (Auto) 0.5 K/mm3 (0.0-0.8) 04/22/21 20:12 Eos # (Auto) 0.1 K/mm3 (0.0-0.4) 04/22/21 20:12 Baso # (Auto) 0.0 K/mm3 (0.0-0.1) 04/22/21 20:12 Seg Neutrophils % 54.8 % (40.0-70.0) 04/22/21 20:12 Seg Neutrophils # 3.0 K/mm3 (1.8-7.7) 04/22/21 20:12 Sodium 139 mmol/L (137-145) 04/22/21 20:12 Potassium 3.5 mmol/L (3.6-5.0) L 04/22/21 20:12 Chloride 103.4 mmol/L (98-107) 04/22/21 20:12 Carbon Dioxide 24 mmol/L (22-30) 04/22/21 20:12 Anion Gap 15 mmol/L 04/22/21 20:12 BUN 7 mg/dL (9-20) L 04/22/21 20:12 Creatinine 0.9 mg/dL (0.8-1.3) 04/22/21 20:12 Estimated GFR > 60 ml/min 04/22/21 20:12 BUN/Creatinine Ratio 8 % 04/22/21 20:12 Glucose 105 mg/dL (75-100) H 04/22/21 20:12 POC Glucose 121 mg/dL (70-105) H 04/22/21 18:19 Hemoglobin A1c 5.5 % (4-6) 04/22/21 20:12 Calcium 9.2 mg/dL (8.4-10.2) 04/22/21 20:12 Total Bilirubin 0.20 mg/dL (0.1-1.2) 04/22/21 20:12 AST 17 units/L (5-40) 04/22/21 20:12 ALT 12 units/L (7-56) 04/22/21 20:12 Alkaline Phosphatase 78 units/L (35-129) 04/22/21 20:12 Total Protein 7.6 g/dL (6.3-8.2) 04/22/21 20:12 Albumin 4.3 g/dL (3.9-5) 04/22/21 20:12 Albumin/Globulin Ratio 1.3 % 04/22/21 20:12 Triglycerides 66 mg/dL (2-149) 04/22/21 20:12 Cholesterol 146 mg/dL (50-199) 04/22/21 20:12 LDL Cholesterol Direct 92 mg/dL (50-130) 04/22/21 20:12 HDL Cholesterol 43 mg/dL (40-59) 04/22/21 20:12 Cholesterol/HDL Ratio 3.39 % 04/22/21 20:12 TSH 2.190 mlU/mL (0.270-4.200) 04/22/21 20:12 Last Vital Signs Temp 98.9 F 04/27/21 19:17 Pulse 103 H 04/27/21 19:17 Resp 18 04/27/21 19:17 BP 113/89 04/27/21 19:17 Pulse Ox 100 04/27/21 19:17
[2021-04-28] MEDS: NICOTINE 21 MG/24 HR PATCH TD SCH (09:40)
[2021-04-28] MEDS: DIVALPROEX DR 250 MG TAB PO SCH ×2 (09:40→21:12)
[2021-04-28] MEDS: risperiDONE 1 MG TAB PO SCH ×2 (09:40→21:12)
[2021-04-28] MEDS: traZODone 50 MG TAB PO SCH (21:12)
--- NOTE | 2021-04-29 09:01 | Discharge Summary ---
Providers - Providers Date of Admission: 04/22/21 17:32 Date of discharge: 04/29/21 Attending physician: GEOVANY DUVAL MD 04/22/21 13:43 Consult to Physician [CONS] Routine Comment: Consulting Provider: ANGELINA CLIFTON Physician Instructions: Reason For Exam: manage medical conditions Primary care physician: [employer] Hospitalization Condition: Stable Hospital course: The patient was provided inpatient psychiatric treatment with safe and supportive environment, group/individual therapy, psychiatric medication, medication adjustment, adverse effect monitor, medical evaluation, medical treatment, social service assessment, social support meeting, placement assessment and psycho-education. The patients mood, cognition, behavior, motivation, compliance to treatment and appreciation on family/social support are improved and stabilized. At the time of discharge, the patient had no suicidal ideas, no homicidal ideas, no aggressive thoughts, no endangering behavior and no debilitating adverse effects. The patient agreed on the treatment plan, understood the risk, benefit, alternative treatment, potential consequence of no treatment, and gave informed consent. Progress Note: 04/24/2021: The patient was seen today. The patient is withdrawn and confused. He reports mood as " ok". 04/25/2021: The patient was seen eating breakfast. He continues to be confused with flat affect. 04/26/20: The patient was seen eating breakfast. He continues to present with flat affect. He states mood as fine. 04/28/2021: The patient is seen today, he is conversational. He states mood as " I'm alright, I just took a shower this morning, I want to hear music today." He denies suicidal/homicidal ideation and denies hallucinations. Disposition: 01 HOME / SELF CARE / HOMELESS Allergies/Adverse Reactions: Allergies No Known Allergies Allergy (Verified 04/22/21 12:22) Vital Signs: Last Vital Signs Temp 97.3 F L 04/28/21 08:03 Pulse 100 H 04/28/21 08:03 Resp 18 04/28/21 08:03 BP 116/75 04/28/21 08:03 Pulse Ox 100 04/28/21 08:03 Last Lab: Laboratory Last Values WBC 5.4 K/mm3 (4.5-11.0) 04/22/21 20:12 RBC 4.19 M/mm3 (3.65-5.03) 04/22/21 20:12 Hgb 13.0 gm/dl (11.8-15.2) 04/22/21 20:12 Hct 38.3 % (35.5-45.6) 04/22/21 20:12 MCV 91 fl (84-94) 04/22/21 20:12 MCH 31 pg (28-32) 04/22/21 20:12 MCHC 34 % (32-34) 04/22/21 20:12 RDW 14.6 % (13.2-15.2) 04/22/21 20:12 Plt Count 209 K/mm3 (140-440) 04/22/21 20:12 Lymph % (Auto) 33.3 % (13.4-35.0) 04/22/21 20:12 [place] % (Auto) 9.8 % (0.0-7.3) H 04/22/21 20:12 Eos % (Auto) 1.6 % (0.0-4.3) 04/22/21 20:12 Baso % (Auto) 0.5 % (0.0-1.8) 04/22/21 20:12 Lymph # (Auto) 1.8 K/mm3 (1.2-5.4) 04/22/21 20:12 [place] # (Auto) 0.5 K/mm3 (0.0-0.8) 04/22/21 20:12 Eos # (Auto) 0.1 K/mm3 (0.0-0.4) 04/22/21 20:12 Baso # (Auto) 0.0 K/mm3 (0.0-0.1) 04/22/21 20:12 Seg Neutrophils % 54.8 % (40.0-70.0) 04/22/21 20:12 Seg Neutrophils # 3.0 K/mm3 (1.8-7.7) 04/22/21 20:12 Sodium 139 mmol/L (137-145) 04/22/21 20:12 Potassium 3.5 mmol/L (3.6-5.0) L 04/22/21 20:12 Chloride 103.4 mmol/L (98-107) 04/22/21 20:12 Carbon Dioxide 24 mmol/L (22-30) 04/22/21 20:12 Anion Gap 15 mmol/L 04/22/21 20:12 BUN 7 mg/dL (9-20) L 04/22/21 20:12 Creatinine 0.9 mg/dL (0.8-1.3) 04/22/21 20:12 Estimated GFR > 60 ml/min 04/22/21 20:12 BUN/Creatinine Ratio 8 % 04/22/21 20:12 Glucose 105 mg/dL (75-100) H 04/22/21 20:12 POC Glucose 121 mg/dL (70-105) H 04/22/21 18:19 Hemoglobin A1c 5.5 % (4-6) 04/22/21 20:12 Calcium 9.2 mg/dL (8.4-10.2) 04/22/21 20:12 Total Bilirubin 0.20 mg/dL (0.1-1.2) 04/22/21 20:12 AST 17 units/L (5-40) 04/22/21 20:12 ALT 12 units/L (7-56) 04/22/21 20:12 Alkaline Phosphatase 78 units/L (35-129) 04/22/21 20:12 Total Protein 7.6 g/dL (6.3-8.2) 04/22/21 20:12 Albumin 4.3 g/dL (3.9-5) 04/22/21 20:12 Albumin/Globulin Ratio 1.3 % 04/22/21 20:12 Triglycerides 66 mg/dL (2-149) 04/22/21 20:12 Cholesterol 146 mg/dL (50-199) 04/22/21 20:12 LDL Cholesterol Direct 92 mg/dL (50-130) 04/22/21 20:12 HDL Cholesterol 43 mg/dL (40-59) 04/22/21 20:12 Cholesterol/HDL Ratio 3.39 % 04/22/21 20:12 TSH 2.190 mlU/mL (0.270-4.200) 04/22/21 20:12 Core Measure Documentation - Palliative Care Palliative Care/ Comfort Measures: Not Applicable - Core Measures Any of the following diagnoses?: none - VTE Discharge Requirements Deep Vein Thrombosis/Pulmonary Embolism Present on Admission: No Exam - Constitutional Vitals: Temp Pulse Resp BP Pulse Ox 97.3 F L 100 H 18 116/75 100 04/28/21 08:03 04/28/21 08:03 04/28/21 08:03 04/28/21 08:03 04/28/21 08:03 Plan Activity: advance as tolerated Weight Bearing Status: Weight Bear as Tolerated Diet: regular Care Plan Goals: Maintain good and stable mental health. Plan of Treatment: The patient should be compliant with medications, not to use drugs and not to drink alcohol. The [facility] understands that if suicidal ideas, homicidal ideas, or any endangering thoughts/behavior arise, they should immediately seek for emergent assistance including but not limited to crisis hot line and emergency room. Follow up with outpatient Psychiatrist and PCP within 7 - 14 days of discharge. Follow up with: PRIMARY CARE, [Primary Care Provider] - 7 Days Prescriptions: traZODone [Desyrel] 50 mg PO QHS 30 Days #[address] [Depakote Dr] 250 mg PO BID 30 Days #60 tablet risperiDONE [RisperDAL] 1 mg PO BID 30 Days #60 tablet
[2021-04-29] MEDS: risperiDONE 1 MG TAB PO SCH (10:02)
[2021-04-29] MEDS: NICOTINE 21 MG/24 HR PATCH TD SCH (10:02)
[2021-04-29] MEDS: DIVALPROEX DR 250 MG TAB PO SCH (10:02)
[2021-04-29 10:37] VITALS: BP 101/71
== END 2021-04-29 12:35 | disposition home or self-care (01) | DRG 885 ==
LOC: UNDOADMIN 12:20 → 3A 12:20 → 5A 17:32
PROVIDERS: ADMIT Psychiatry & Neurology Psychiatry; ATTEND Psychiatry & Neurology Psychiatry
DX: F20.9 Schizophrenia, unspecified (principal); F17.210 Nicotine dependence, cigarettes, uncomplicated; Z20.822 Contact with and (suspected) exposure to COVID-19; Z82.49 Family history of ischemic heart disease and other diseases of the circulatory system
CPT/HCPCS: 36415; 80053; 80061; 82962; 83036; 84443; 85025; G0378; J3486